=== PATIENT | female | born 1955 | race Caucasian/White ===

== ENCOUNTER → 2017-07-12 | Outpatient (CLI) | payer OTHER ==
[~2017-07-12] MED LIST: ERGO50000 PO; ESOM20 PO; ESTRACE CREAM; FIBE4P PO; FISH1000 PO; LINZESS145 MCG; METF500C PO; RED RICE YEAST PO; SIMV40
[2017-07-12 19:04] LABS: Source, Urine Clean Catch
[2017-07-12 19:10] LABS: Appearance, Urine Clear (Clear); Bilirubin, Urine Neg (Neg); Blood, Urine 5+ (Neg); Color, Urine Yellow (P-Yellow); Glucose Qualitative, Urine Neg (Neg); Ketones, Urine Neg (Neg); Leukocyte Esterase, Urine Neg (Neg); Nitrite, Urine Neg (Neg); Protein, Urine Neg (Neg); Specific Gravity, Urine 1.015 (1.003-1.022); Urobilinogen, Urine NORM (Normal)
[2017-07-12 19:30] LABS: Bacteria Not Seen /hpf; Squamous Epithelial Cells Few /hpf (Few)
== END | disposition home or self-care (01) ==
LOC: LAB 17:01 → LAB SHORT 17:01
PROVIDERS: Obstetrics & Gynecology Gynecology
DX: R30.0 Dysuria (principal)
CPT/HCPCS: 81001

== ENCOUNTER → 2017-10-02 | Outpatient (CLI) | payer OTHER ==
[2017-10-02 17:07] LABS: Thyroid Stimulating Hormone 1.27 uIU/mL (0.360-4.800); Thyroxine (T4) 8.2 ug/dL (4.8-13.9)
== END ==
LOC: LAB SHORT 16:32 → LAB 16:32
PROVIDERS: Internal Medicine Hematology & Oncology
DX: D50.8 Other iron deficiency anemias (principal)
CPT/HCPCS: 84436; 84443

== ENCOUNTER 2017-11-10 06:18 | Day surgery (SDC) | payer OTHER ==
[~2017-11-10] VITALS: Ht 157.5 cm; Wt 69.5 kg
[2017-11-10] MEDS ORDERED: JARDIANCE10 MG PO (07:03)
[2017-11-10] MEDS ORDERED: ABAT250V (07:03)
== END 2017-11-10 08:50 | disposition home or self-care (01) ==
LOC: ORSCSDS 06:18
PROVIDERS: Surgery
PROC: 0DB68ZX Excision of Stomach, Via Natural or Artificial Opening Endoscopic, Diagnostic (ICD-10-PCS; principal; 2017-11-10 07:30)
PROC: 0DJD8ZZ Inspection of Lower Intestinal Tract, Via Natural or Artificial Opening Endoscopic (ICD-10-PCS; principal; 2017-11-10 07:30)
PROC: 0DB48ZX Excision of Esophagogastric Junction, Via Natural or Artificial Opening Endoscopic, Diagnostic (ICD-10-PCS; principal; 2017-11-10 07:30)
DX: K22.70 Barrett's esophagus without dysplasia (principal); K21.9 Gastro-esophageal reflux disease without esophagitis; K44.9 Diaphragmatic hernia without obstruction or gangrene; D50.9 Iron deficiency anemia, unspecified; E11.9 Type 2 diabetes mellitus without complications; Z79.899 Other long term (current) drug therapy
CPT/HCPCS: 82947; 88305; J0330; J1980; J2405

== ENCOUNTER 2019-12-10 11:54 | Day surgery (SDC) | payer OTHER ==
[~2019-12-10] VITALS: Ht 157.5 cm; Wt 58.0 kg
[~2019-12-10 11:54] MED LIST changes: +ABAT250V; +ATOR40TA PO; +Amaryl2 MG PO; +Aspirin EC81 MG PO; +B-12500 MC1 PO; +CENTRUM SILVER1 EAC2 PO; +FERSU300 PO; +JARDIANCE10 MG PO; +JARDIANCE25 MG PO; +MAGNESIUM OXID500 MG PO
== END 2019-12-10 13:31 | disposition home or self-care (01) ==
LOC: ORSCSDS 11:54
PROVIDERS: Surgery
PROC: 0DB68ZX Excision of Stomach, Via Natural or Artificial Opening Endoscopic, Diagnostic (ICD-10-PCS; principal; 2019-12-10 13:00)
PROC: 0DB48ZX Excision of Esophagogastric Junction, Via Natural or Artificial Opening Endoscopic, Diagnostic (ICD-10-PCS; principal; 2019-12-10 13:00)
DX: K22.70 Barrett's esophagus without dysplasia (principal); Z87.19 Personal history of other diseases of the digestive system; K44.9 Diaphragmatic hernia without obstruction or gangrene; G47.30 Sleep apnea, unspecified; I10 Essential (primary) hypertension; E11.9 Type 2 diabetes mellitus without complications; E78.00 Pure hypercholesterolemia, unspecified; Z79.82 Long term (current) use of aspirin; Z79.899 Other long term (current) drug therapy
CPT/HCPCS: 82947; 88305; 88342; J2704; J7120